=== PATIENT | female | born 1950 | race Caucasian/White ===

== ENCOUNTER 2017-12-23 11:40 | Outpatient (CLI) | payer MEDICARE, OTHER | END 2017-12-23 11:41 | disposition home or self-care (01) | LOC: BICMAMMO 11:40 | PROVIDERS: ATTEND Family Medicine | DX: Z12.31 Encounter for screening mammogram for malignant neoplasm of breast (principal) | CPT/HCPCS: 77063; 77067 ==

== ENCOUNTER 2018-02-10 05:44 | Day surgery (SDC) | payer MEDICARE, OTHER ==
[2018-02-09 10:46] VITALS: BMI 45.6
--- NOTE | 2018-02-10 05:17 | HP ---
SHORT STAY HISTORY AND PHYSICAL DATE OF ADMISSION: 02/10/2018 HISTORY OF PRESENT ILLNESS: This is a 67-year-old female with history of colon polyp and also chronic acid reflux. The patient has acid reflux for many years. She has been on medical therapy for a long time. The patient has no dysphagia or odynophagia. The patient comes for an EGD and colonoscopy with history of colon polyp for EGD, because of chronic acid reflux. ALLERGIES: None. SOCIAL HISTORY: Patient does not smoke or drink alcohol. MEDICAL ILLNESSES: 1. Obesity. 2. Hypertension. 3. Diabetes. 4. Hyperlipidemia. 5. Depression. 6. Hypothyroidism. 7. Restless leg syndrome. PHYSICAL EXAMINATION: GENERAL: Patient is obese, appears comfortable. VITAL SIGNS: Pulse is 70, blood pressure 140/70. HEENT: Conjunctivae clear. CARDIOVASCULAR SYSTEM: First and second heart sounds normal. LUNGS: Clear to auscultation. ABDOMEN: Soft to palpate. No organomegaly. No tenderness. No mass. ADMITTING DIAGNOSES: 1. Colon polyp. 2. Chronic acid reflux. PLAN: EGD and colonoscopy. [facility]
--- NOTE | 2018-02-10 09:02 | OP ---
DATE OF PROCEDURE: 02/10/2018 OPERATIVE PROCEDURE: Colonoscopy. PREOPERATIVE DIAGNOSIS: This is a 67-year-old female [facility] POSTOPERATIVE DIAGNOSES: 1. Sigmoid diverticular disease. 2. Hemorrhoids. OPERATIVE PROCEDURE IN DETAIL: The patient was placed on her left lateral position and was given sed ation by Anesthesia Department. A rectal exam was done before the scope was advanced into the rectum . No lesion felt on rectal exam. Then, Pentax video colonoscope was introduced into the rectum and advanced all the way into the cecum. The ileocecal area, cecum, ascending colon, no pathology seen. The scope was withdrawn back and was advanced one more time back into the cecum. Again, careful wit hdrawal of scope from the cecum to the ascending colon, hepatic flexure, no pathology seen. The cronin sverse colon, splenic flexure, descending colon, no pathology seen. The sigmoid colon showed scatter ed diverticular disease. Rectum showed hemorrhoids.
--- NOTE | 2018-02-10 09:19 | OP ---
DATE OF PROCEDURE: 02/10/2018 SURGEON: Eddie Pinto M.D. OPERATIVE PROCEDURE: Esophagogastroduodenoscopy with biopsy. PREOPERATIVE DIAGNOSIS: A 67-year-old female with chronic acid reflux, undergoing esophago gastroduodenoscopy. POSTOPERATIVE DIAGNOSES: 1. Irregular Z-line. Otherwise, the esophageal mucosa appears normal. There is no erosions or any ulceration. 2. Multiple gastric polyps over the stomach. 3. Normal duodenum. 4. Hiatus hernia. PROCEDURE IN DETAIL: The patient was placed on her left lateral position and was given sedation by A nesthesia Department. A Pentax video gastroscope under direct vision was passed in the oropharynx to the GE junction, into stomach and subsequently in the descending duodenum. The esophageal mucosa ap pears normal through the esophagus. At the GE junction just over the GE junction, the patient had ir regular Z-line. This was ____. Retroflexion failed to show any pathology of the fundus or cardia. She just has had a hiatal hernia. She was found to have multiple gastric polyps throughout the stoma ch. I biopsied a couple of polyps. The gastric antrum, pyloric channel, no pathology seen. The duo denal bulb and descending duodenum, no pathology seen. The stomach was decompressed and the scope re moved. DISCHARGE PLANNING: This is a 67-year-old female with longstanding acid reflux who came fo r EGD. She had EGD with biopsy and the Z-line was irregular. The colon was basically negative. DISCHARGE RECOMMENDATIONS: 1. Resume all medicines as before. 2. The patient was advised to call me if she develops abdominal pain or hematochezia. 3. Repeat colonoscopy in 10 years. 4. Weight loss and dietary restrictions explained to the patient.
[2018-02-10] MEDS ORDERED: Lidocaine 1% PF 5 ML VIAL ONE (14:48)
[2018-02-10] MEDS ORDERED: PROPOFOL 200 MG/20 ML VIAL ONE (14:48)
== END 2018-02-10 09:10 | disposition home or self-care (01) ==
LOC: SDC 05:44
PROVIDERS: ATTEND Internal Medicine Gastroenterology
PROC: 0DJD8ZZ Inspection of Lower Intestinal Tract, Via Natural or Artificial Opening Endoscopic (ICD-10-PCS; principal; 2018-02-10)
PROC: 0DB58ZX Excision of Esophagus, Via Natural or Artificial Opening Endoscopic, Diagnostic (ICD-10-PCS; 2018-02-10)
PROC: 0DB68ZX Excision of Stomach, Via Natural or Artificial Opening Endoscopic, Diagnostic (ICD-10-PCS; 2018-02-10)
DX: Z12.11 Encounter for screening for malignant neoplasm of colon (principal); K57.30 Diverticulosis of large intestine without perforation or abscess without bleeding; K64.9 Unspecified hemorrhoids; K31.7 Polyp of stomach and duodenum; K21.0 Gastro-esophageal reflux disease with esophagitis; I10 Essential (primary) hypertension; E11.9 Type 2 diabetes mellitus without complications; E78.5 Hyperlipidemia, unspecified; E03.9 Hypothyroidism, unspecified; G25.81 Restless legs syndrome; K44.9 Diaphragmatic hernia without obstruction or gangrene; Z79.899 Other long term (current) drug therapy
CPT/HCPCS: 43239; 88305; 88312; 88313; G0121; J2001; J2704

== ENCOUNTER 2018-02-26 10:17 | Emergency (ER) | payer MEDICARE, OTHER ==
[2018-02-26 11:01] LABS: #Basophils 0.1 thou/uL (0.0-0.2); #Eosinphils 0.1 thou/uL (0.0-0.7); #Lymphocytes 1.3 thou/uL (1.20-3.40); #Monocytes 0.5 thou/uL (0.11-0.59); %Basophils 1.6 % (0.0-1.0); %Eosinophils 2.1 % (0.0-10.0); %Lymphocytes 21.6 % (21.0-51.0); %Monocytes 8.8 % (0.0-10.0); %Neutrophils 65.9 % (42.0-75.0); Hemoglobin 11.7 g/dL (12.0-16.0); Mean Corpuscular HGB CONC 33.9 g/dL (32.0-36.0); Mean Corpuscular Hemoglobin 29.2 pg (27.0-31.0); Mean Corpuscular Volume 86.1 fL (78.0-98.0); Mean Platelet Volume 8.9 fL (7.4-10.4); Platelet Count 120 thou/uL (130-400); RBC Distribution Width 13.6 % (11.5-14.5); Red Blood Cell (RBC) Count 4.02 mill/uL (4.20-5.40)
[2018-02-26 11:12] LABS: ALT (SGPT) 25 U/L (8-55); AST (SGOT) 28 U/L (5-34); Albumin 3.9 g/dL (3.4-4.8); Alkaline Phosphatase 93 U/L (40-150); Anion Gap 14 mmol/L (10-20); BUN (Urea Nitrogen) 17 mg/dL (9.8-20.1); Bilirubin, Total 0.8 mg/dL (0.2-1.2); Calc. Creatinine Clearance 0 mL/min (70-130); Calcium 9.2 mg/dL (7.8-10.44); Carbon Dioxide 27 mmol/L (23-31); Chloride 102 mmol/L (98-107); Estimated GFR-MDRD 78; Globulin 3.4 g/dL (2.4-3.5); Glucose 111 mg/dL (80-115); Potassium 3.9 mmol/L (3.5-5.1); Protein, Total 7.3 g/dL (6.0-8.3); Sodium 139 mmol/L (136-145)
--- NOTE | 2018-02-26 11:28 | ULT ---
VENOUS DOPPLER ULTRASOUND OF THE LEFT LOWER EXTREMITY: Date: 02/26/18 HISTORY: Left lower extremity pain and edema. TECHNIQUE: Franklin scale ultrasound with color flow and spectral Doppler imaging of the deep venous system of the l eft lower extremity was performed. FINDINGS: There is good flow, compression, and augmentation noted in the left common femoral, femoral, deep fem oral, popliteal, posterior tibial, and greater saphenous veins. IMPRESSION: No evidence of deep venous thrombosis in the left lower extremity. POS: JOHANN
[2018-02-26] MEDS ORDERED: Ketorolac Tromethamine 30 MG/ML VIAL ONE (11:59)
[2018-02-26] MEDS ORDERED: Amoxicillin/Potassium Clav 875 MG TAB ONE (11:59)
== END 2018-02-26 15:03 | disposition home or self-care (01) ==
LOC: SCSER 10:17
DX: L03.116 Cellulitis of left lower limb (principal); E11.9 Type 2 diabetes mellitus without complications; I10 Essential (primary) hypertension; F32.9 Major depressive disorder, single episode, unspecified; Z79.899 Other long term (current) drug therapy
CPT/HCPCS: 36416; 80053; 85025; 85652; 86140; 96374; J1885

== ENCOUNTER 2018-04-21 11:53 | Outpatient (CLI) | payer MEDICARE, OTHER ==
--- NOTE | 2018-04-21 16:16 | MRI ---
MRI OF THE LUMBAR SPINE WITH AND WITHOUT CONTRAST: Date: 04-21-18 Comparison: None. History: Degenerative disc disease, lumbar radiculopathy, low back pain. Technique: Multiplanar, multisequence MRI images were obtained of the lumbar spine with and without c ontrast. FINDINGS: The sagittal STIR imaging demonstrates no focal area of osseous marrow edema. There is no significant anterolisthesis or retrolisthesis. There is mild increased T2 signal within the paraspinal musculature/soft tissues posteriorly at the L 4 and L5 level, likely on the basis of prior surgery. Assuming five lumbar type vertebral bodies the conus medullaris terminates at T12. T11-12: There is disc space narrowing with disc desiccation, anterior osteophyte formation, and mild disc bulge. Bilateral facet hypertrophy noted. Mild bilateral neural foraminal stenosis on the basis of facet hypertrophy, left greater than right. T12-L1: Mild bilateral facet hypertrophy. Minimal disc bulge. No significant central canal or neural foraminal stenosis. L1-2: Intervertebral disc height and signal intensity within normal limits. Mild bilateral facet hype rtrophy with no significant central canal or neural foraminal stenosis. L2-3: Mild bilateral facet hypertrophy, right greater than left. The intervertebral disc height and s ignal intensity appears within normal limits with no significant central canal or neural foraminal st enosis. L3-4: Prominent bilateral facet hypertrophy. The patient appears status post bilateral laminectomy. T here is a foraminal disc osteophyte complex on the right with moderate associated right neural pooja inal stenosis. No significant central canal stenosis. Mild left neural foraminal stenosis on the basi s of facet hypertrophy noted. L4-5: There is disc space narrowing, disc desiccation and anterior osteophyte formation. There is holley ateral facet hypertrophy, left greater than right. There is mild/moderate left neural foraminal steno sis. No significant central canal or right neural foraminal stenosis. L5-S1: Bilateral facet hypertrophy with no significant central canal or neural foraminal stenosis. Th ere is disc space narrowing and disc desiccation. The post contrast imaging demonstrates no abnormal enhancement involving the nerve roots of the cauda equina. No significant abnormal enhancement is seen involving the intervertebral discs or imaged oss eous structures. There is a very large incompletely imaged . Retroperitoneal structures demonstrate no acute findings. IMPRESSION: Post-operative and degenerative changes present within the lumbar spine as detailed above. POS: JOHANN
--- NOTE | 2018-04-21 16:24 | MRI ---
MRI CERVICAL SPINE WITHOUT CONTRAST: 04/21/18 HISTORY: Cervical radiculopathy. Patient fell in February and is now having bilateral arm pain. COMPARISON: None. TECHNIQUE: Cervical spine MRI is performed without intravenous gadolinium administration. Multisequential, multi planar imaging is performed. FINDINGS: There is 2.6 mm of anterolisthesis of C2 upon C3. There is slight reversal of cervical lordosis cente red at C5. Overall, cervical spine vertebral body height is maintained. There is no fracture. There i s no significant STIR hyperintensity to suggest vertebral body edema or ligamentous injury. There is T1 marrow signal hypointensity. Correlate for anemia or marrow infiltrative process. There a re type II Modic changes involving the C3-C4 disc space. There is intrinsic T1 and T2 hyperintensity at T2, likely representing a small hemangioma which is incompletely evaluated. C2-C3: Broad based disc osteophyte complex abuts the thecal sac. There is no significant central korin l stenosis. There is right facet hypertrophy. Moderate right foraminal narrowing. Left neural foramen is patent. C3-C4: Broad based disc osteophyte complex abuts the thecal sac. The ventral CSF signal intensity is effaced. There is flattening of the cervical cord with at least mild central canal stenosis. No T2 hy perintensity of the cord. Degenerative changes in bilateral uncovertebral joints results in severe ri ght and moderate to severe left foraminal narrowing. C4-C5: Broad based disc osteophyte complex abuts the thecal sac. Ventral CSF signal intensity is effa ian. There is mild flattening of the cervical cord, without T2 hyperintensity of the cord. Overall mi ld central canal stenosis. Right neural foramen is patent. Moderate to severe left foraminal narrowin g. C5-C6: Broad based disc osteophyte complex abuts the thecal sac. Mild central canal stenosis. Possibl e mild slight narrowing of the ventral cord without T2 hyperintensity of the cord. Mild bilateral for aminal narrowing. C6-C7: Broad based disc osteophyte complex abuts the thecal sac and effaces the ventral subarachnoid space. There does appear to be mass effect on the cervical cord with mild to moderate central canal s tenosis. Evaluation is limited by motion. Limited evaluation of the neural foramina. There appears to be at least moderate bilateral foraminal narrowing. C7-T1: No significant central canal stenosis or foraminal narrowing. IMPRESSION: 1. Diffuse T1 marrow signal hypointensity. Correlate for anemia or marrow infiltrative process. 2. Degenerative changes of the cervical spine as detailed above. There are varying degrees of at least moderate central canal stenosis as well as moderate to severe foraminal narrowing as described above. POS: JOHANN
== END 2018-04-21 11:54 | disposition home or self-care (01) ==
LOC: SCSMRI 11:53
PROVIDERS: ATTEND Surgery
DX: M47.22 Other spondylosis with radiculopathy, cervical region (principal); M51.16 Intervertebral disc disorders with radiculopathy, lumbar region; M47.26 Other spondylosis with radiculopathy, lumbar region; M48.061 Spinal stenosis, lumbar region without neurogenic claudication; M54.5 Low back pain; M48.02 Spinal stenosis, cervical region; M99.81 Other biomechanical lesions of cervical region; Z98.890 Other specified postprocedural states
CPT/HCPCS: 72141; 72158; 82565

== ENCOUNTER 2018-07-05 12:50 | Outpatient (CLI) | payer MEDICARE ==
--- NOTE | 2018-07-05 15:00 | ULT ---
RENAL ULTRASOUND: HISTORY: Left renal cyst. COMPARISON: 11/18/2016 TECHNIQUE: Multiplanar wilkinson-scale and color Doppler images were obtained in a renal ultrasound. FINDINGS: The kidneys demonstrate normal cortical echogenicity. There is a large cyst emanating from the upper pole of the left kidney, measuring 14.9 cm in greatest dimension. No obvious solid component is see n. There is no evidence of hydronephrosis or shadowing calculi. The kidneys measure 11.4 and 15.2 c m in length, on the right and left, respectively. Limited visualization of the urinary bladder is unremarkable. IMPRESSION: Left renal cyst. POS: RODRÍGUEZ
== END 2018-07-05 12:51 | disposition home or self-care (01) ==
LOC: ULT 12:50
PROVIDERS: ATTEND Urology
DX: N28.1 Cyst of kidney, acquired (principal)
CPT/HCPCS: 76770

== ENCOUNTER 2019-06-02 20:29 | Emergency (ER) | payer MEDICARE ==
[2019-06-02] MEDS ORDERED: Morphine 4 MG/ML VIAL ONE (21:12)
[2019-06-02] MEDS ORDERED: Ondansetron PF 4 MG/2 ML Vial ONE (21:12)
[2019-06-02 21:27] LABS: Band 3 % (5-11); Eosinophils 1 % (0-10); Lymphocytes 5 % (21-51); MDiff Complete? YES; Mean Corpuscular HGB CONC 33.3 g/dL (32.0-36.0); Mean Corpuscular Hemoglobin 30.1 pg (27.0-31.0); Mean Corpuscular Volume 90.5 fL (78.0-98.0); Mean Platelet Volume 7.9 fL (7.4-10.4); Monocytes 1 % (0-10); Neutrophil 90 % (42-75); Platelet Count 105 thou/uL (130-400); Platelet Morphology Comment Appears Decreased; RBC Distribution Width 14.4 % (11.5-14.5); Red Blood Cell (RBC) Count 4.31 mill/uL (4.20-5.40); White Blood Cell (WBC) Count 4.7 thou/uL (4.8-10.8)
[2019-06-02 21:29] LABS: ALT (SGPT) 28 U/L (8-55); AST (SGOT) 36 U/L (5-34); Albumin 3.7 g/dL (3.4-4.8); Alkaline Phosphatase 100 U/L (40-110); Anion Gap 15 mmol/L (10-20); BUN (Urea Nitrogen) 24 mg/dL (9.8-20.1); Bilirubin, Total 0.5 mg/dL (0.2-1.2); CK (CPK) 390 U/L (29-168); Calc. Creatinine Clearance 0 mL/min (70-130); Calcium 8.6 mg/dL (7.8-10.44); Carbon Dioxide 26 mmol/L (23-31); Chloride 102 mmol/L (98-107); Estimated GFR-MDRD 72; Globulin 3.3 g/dL (2.4-3.5); Glucose 126 mg/dL (80-115); Lipase 19 U/L (8-78); Potassium 3.9 mmol/L (3.5-5.1); Sodium 139 mmol/L (136-145)
--- NOTE | 2019-06-02 22:34 | ULT ---
GALLBLADDER ULTRASOUND: 06/02/19 HISTORY: Right upper quadrant pain. Nausea. Vomiting. COMPARISON: None. TECHNIQUE: Utilizing a multihertz transducer, sonographic imaging of the right upper quadrant is performed in th e longitudinal and transverse plane. FINDINGS: Pancreas is obscured by bowel gas. There is an adjacent fluid filled structure which may represent a portion of the stomach. Hepatic parenchyma has a normal echotexture. No hepatic masses or intrahepatic biliary dilatation. Th e contour of the hepatic margin is maintained. Portal vein is patent. Appropriate directional flow. Sonographic evidence of cholelithiasis. Gallbladder wall is thickened measuring 0.4 cm. No pericholec ystic fluid. Positive Sy's sign is reported. Right kidney demonstrates cortical thinning. No hydronephrosis. Right kidney measures 5.3 x 5.8 x 11. 2 cm. Common bile duct diameter is 0.4 cm. IMPRESSION: 1. Sonographic evidence of cholelithiasis with findings suggesting cholecystitis. 2. Possible distended stomach, incompletely evaluated. Consider a two view abdomen radiograph f or further detail. 3. Further evaluation with HIDA scan may be beneficial. POS: JOHANN
== END 2019-06-02 22:44 | disposition home or self-care (01) ==
LOC: SCSER 20:29
DX: K80.20 Calculus of gallbladder without cholecystitis without obstruction (principal); I10 Essential (primary) hypertension; E03.9 Hypothyroidism, unspecified; E11.9 Type 2 diabetes mellitus without complications; K21.9 Gastro-esophageal reflux disease without esophagitis; F32.9 Major depressive disorder, single episode, unspecified; Z79.899 Other long term (current) drug therapy
CPT/HCPCS: 76705; 80053; 82550; 83690; 84484; 85025; 93005; 96361; 96374; 96375; J2270; J2405

== ENCOUNTER 2019-06-03 10:24 | Day surgery (SDC) | payer MEDICARE ==
[2019-06-03 11:37] LABS: #Basophils 0.1 thou/uL (0.0-0.2); #Lymphocytes 0.6 thou/uL (1.20-3.40); #Monocytes 0.3 thou/uL (0.11-0.59); #Neutrophils 2.4 thou/uL (1.40-6.50); %Basophils 1.9 % (0.0-1.0); %Eosinophils 1.4 % (0.0-10.0); %Lymphocytes 18.1 % (21.0-51.0); %Neutrophils 70.7 % (42.0-75.0); Hemoglobin 11.7 g/dL (12.0-16.0); Mean Corpuscular HGB CONC 33.3 g/dL (32.0-36.0); Mean Corpuscular Hemoglobin 30.4 pg (27.0-31.0); Mean Corpuscular Volume 91.2 fL (78.0-98.0); Mean Platelet Volume 7.8 fL (7.4-10.4); Platelet Count 90 thou/uL (130-400); RBC Distribution Width 13.6 % (11.5-14.5); Red Blood Cell (RBC) Count 3.84 mill/uL (4.20-5.40); White Blood Cell (WBC) Count 3.4 thou/uL (4.8-10.8)
[2019-06-03] MEDS ORDERED: Morphine 4 MG/ML VIAL ONE (11:50)
[2019-06-03] MEDS ORDERED: Ondansetron PF 4 MG/2 ML Vial ONE ×2 (11:51→15:39)
[2019-06-03 11:57] LABS: Bilirubin Negative (Negative); Blood, Urine Negative (Negative); Clarity Clear (Clear); Glucose, Urine (Dipstick) Normal (Negative); Leukocyte Negative Leu/uL (Negative); Nitrite Negative (Negative); Protein, Urine (Dipstick) 10 mg/dL (Neg-Trace); Urobilinogen 3 mg/dL (Less than 2)
[2019-06-03 12:01] LABS: ALT (SGPT) 24 U/L (8-55); AST (SGOT) 31 U/L (5-34); Albumin 3.6 g/dL (3.4-4.8); Alkaline Phosphatase 85 U/L (40-110); Anion Gap 10 mmol/L (10-20); BUN (Urea Nitrogen) 15 mg/dL (9.8-20.1); Bilirubin, Total 0.6 mg/dL (0.2-1.2); Calc. Creatinine Clearance 0 mL/min (70-130); Calcium 8.2 mg/dL (7.8-10.44); Carbon Dioxide 26 mmol/L (23-31); Chloride 102 mmol/L (98-107); Estimated GFR-MDRD 74; Glucose 108 mg/dL (80-115); Lipase 13 U/L (8-78); Potassium 3.4 mmol/L (3.5-5.1); Protein, Total 6.6 g/dL (6.0-8.3); Sodium 135 mmol/L (136-145)
[2019-06-03] MEDS ORDERED: Levofloxacin 500 mg/D5W 100 ml Premix Bag ONE (14:11)
[2019-06-03] MEDS ORDERED: Bupivacaine HCl 0.5%/Epinephrine 1:200,000/PF 30 ml Vial ONE (15:37)
[2019-06-03] MEDS ORDERED: Iothalamate Meglumine 60% 50 ML VIAL FS ONE (15:37)
[2019-06-03] MEDS ORDERED: PROPOFOL 200 MG/20 ML VIAL ONE (15:39)
[2019-06-03] MEDS ORDERED: Rocuronium Bromide 10 MG/ML (10ML VIAL) ONE (15:39)
[2019-06-03] MEDS ORDERED: Succinylcholine Chloride 20 MG/ML 10 ml SYRINGE FS ONE (15:39)
[2019-06-03] MEDS ORDERED: Lidocaine 1% PF 5 ML VIAL ONE (15:39)
[2019-06-03] MEDS ORDERED: Dexamethasone 20 MG/5 ML VIAL ONE (15:39)
[2019-06-03] MEDS ORDERED: Fentanyl 100 MCG/2 ML VIAL ONE ×3 (15:40→17:43)
[2019-06-03] MEDS ORDERED: Ketorolac Tromethamine 30 MG/ML VIAL ONE (15:54)
--- NOTE | 2019-06-03 16:13 | HP ---
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 Liver function tests were normal. Bile duct caliber normal. She is seen in the emergency room, brought to the preoperative holding. ALLERGIES: NONE. SOCIAL HISTORY: Tobacco, none. Alcohol, occasional wine. MEDICATIONS: 1. Pramipexole. 2. Pioglitazone. 3. Hydrochlorothiazide/lisinopril. 4. Levothyroxine. 5. Nexium. 6. Duloxetine. PAST MEDICAL HISTORY: Diabetes mellitus, hypertension, GERD. Five years ago with Dr. Pete, she had a normal cardiac catheterization prior to undergoing knee replacements. The patient is . She lives in [place]. PAST SURGICAL HISTORY: Bilateral total knee replacements, L3-5 surgery, Dr. Pierson; carpal tunnel release bilaterally; total abdominal hysterectomy; vein ablation. The patient is 2, para 2. 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 She is accompanied by a relative. She is . REVIEW OF SYSTEMS: Ten-point, noncontributory. PHYSICAL EXAMINATION: VITAL SIGNS: Weight 140 kg, blood pressure 117/59, pulse 75, respiratory rate 18, and temperature 98.5 degrees. GENERAL: Morbidly obese. HEENT: Sclerae nonicteric. SKIN: Nonjaundiced. NECK: Carotids are palpable without bruits. No lymphadenopathy in neck, axilla, or groins. LUNGS: Clear to auscultation. No wheezing. CARDIAC: Regular rate and rhythm without murmur or gallop. ABDOMEN: Soft, tenderness in right upper quadrant. Obese. EXTREMITIES: Unremarkable. No ankle edema. LABORATORY DATA: Sodium 135, potassium 3.4, BUN 15, creatinine 0.77. White count 3, hemoglobin 11.7. ASSESSMENT AND PLAN: 1. Cholecystitis, acute. Recommend laparoscopic video cholecystectomy. She had a positive Sy sign and gallstones last night, we will send home. She received intravenous antibiotics in the emergency room. We will plan preoperative Toradol, Ofirmev, laparoscopic video cholecystectomy. Risks of infection, bleeding, visceral and biliary injury discussed. Questions answered. She consents. 2. Hypertension. 3. Diabetes mellitus. 4. Lumbar surgery. 5. Reflux. 6. Morbid obesity. 7. Metabolic syndrome. Job ID: [id number]
[2019-06-03] MEDS ORDERED: SUGAMMADEX SODIUM 200 MG/2 ML VIAL ONE (16:51)
[2019-06-03] MEDS ORDERED: Promethazine HCl 25 MG/ML VIAL IM PRN (17:39)
[2019-06-03] MEDS ORDERED: Ondansetron HCl/PF 4 MG/2 ML Vial IVP PRN (17:39)
[2019-06-03] MEDS ORDERED: Promethazine HCl 25 MG/ML VIAL SLOW IVP PRN (17:39)
[2019-06-03] MEDS ORDERED: HYDROcodone/Acetaminophen 5/325 mg Tablet ONE ×2 (18:19)
--- NOTE | 2019-06-04 00:24 | OP ---
DATE OF PROCEDURE: 06/03/2019 PREOPERATIVE DIAGNOSES: Morbid obesity, chronic cholecystitis, cholelithiasis, diabetes, and hypertension. POSTOPERATIVE DIAGNOSES: Morbid obesity, chronic cholecystitis, cholelithiasis, diabetes, hypertension, and cirrhosis. PROCEDURES PERFORMED: Laparoscopic video cholecystectomy; core liver biopsies, right lobe of liver. ANESTHESIA: General, local of 0.5% Marcaine with epinephrine 30 mL Note, hepatitis serology checked. Postoperatively, it will be discussed with the patient in followup office visit. DESCRIPTION OF PROCEDURE: The patient was taken to the operating room, where under general anesthesia, abdomen was prepared with ChloraPrep and draped in routine fashion. Local anesthetic was infiltrated in the skin and subcutaneous tissue about each port site. Supraumbilical midline incision was made. Pneumoperitoneum to 15 mmHg was obtained with a Veress needle, replaced with a 5 port, video laparoscope was inserted. Right subxiphoid incision was made and 11 port was placed. Right subcostal incision was made at midclavicular and anterior axillary line, and the 5 port was placed. Liver was cirrhotic and irregular. Core liver biopsies obtained x2. Hemostasis was gained with cautery. Core was submitted to Pathology in formalin. Fundus of the gallbladder was grasped at the cephalad. Infundibulum was grasped and reflected laterally. Cystic artery and duct dissected free. Critical view obtained. Cystic artery and duct doubly clipped proximally, divided, and gallbladder dissected free from liver bed obtaining good hemostasis prior to division of the final peritoneal attachments. Gallbladder and contents were removed and submitted to Pathology. Hemostasis was gained with cautery due to cirrhosis. Yessenia was placed in the liver bed. Hemostasis was ensured. Irrigant and pneumoperitoneum were evacuated. All instruments were removed and all skin incisions were approximated with interrupted subdermal 4-0 Monocryl and Medulla glue applied. Job ID: [id number]
== END 2019-06-03 19:40 | disposition home or self-care (01) ==
LOC: ERS 10:24 → SDC 17:41
PROVIDERS: ATTEND Specialist
PROC: 0FT44ZZ Resection of Gallbladder, Percutaneous Endoscopic Approach (ICD-10-PCS; principal; 2019-06-03)
PROC: 0FB14ZX Excision of Right Lobe Liver, Percutaneous Endoscopic Approach, Diagnostic (ICD-10-PCS; 2019-06-03)
DX: K74.60 Unspecified cirrhosis of liver (principal); K76.0 Fatty (change of) liver, not elsewhere classified; K81.2 Acute cholecystitis with chronic cholecystitis; E11.9 Type 2 diabetes mellitus without complications; I10 Essential (primary) hypertension; E03.9 Hypothyroidism, unspecified; K21.9 Gastro-esophageal reflux disease without esophagitis; E88.81 Metabolic syndrome and other insulin resistance; E66.01 Morbid (severe) obesity due to excess calories; Z68.42 Body mass index [BMI] 45.0-49.9, adult; Z79.84 Long term (current) use of oral hypoglycemic drugs; Z79.899 Other long term (current) drug therapy
CPT/HCPCS: 80053; 81003; 82248; 83690; 85025; 88304; 88307; 88313; 93005; 96361; 96365; 96375; J0131; J0670; J1100; J1610; J1885; J1956; J2001; J2270; J2405; J2704; J3010

== ENCOUNTER 2019-07-20 10:33 | Outpatient (CLI) | payer MEDICARE ==
--- NOTE | 2019-07-20 11:15 | ULT ---
ULTRASOUND RETROPERITONEUM COMPLETE: (RENAL) DATE: 07/20/2019 HISTORY: Follow-up renal cyst in 69-year-old female. COMPARISON: 07/05/2018 FINDINGS: There is a very large, approximately 14.5 x 8 x 13 cm exophytic cyst arising from the upper pole of t he left kidney. Left kidney is difficult to measure because of this cyst. Right kidney is 10 x 6.5 x 6 cm. No hydronephrosis bilaterally. Approximately 180 mL volume of urinary bladder at time of scan. No mural thickening of bladder. No interval change overall. IMPRESSION: Very large left renal cyst. No interval change.
== END 2019-07-20 10:34 | disposition home or self-care (01) ==
LOC: SCSULT 10:33
PROVIDERS: ATTEND Urology
DX: N28.1 Cyst of kidney, acquired (principal)
CPT/HCPCS: 76770

== ENCOUNTER 2020-07-02 13:53 | Outpatient (CLI) | payer MEDICARE ==
[~2020-07-02 13:53] MED LIST: Iopamidol-370 76% 500 ML 1 ML ONE
--- NOTE | 2020-07-02 15:08 | CT ---
Exam: Abdomen CT with and without contrast Pelvic CT with and without contrast HISTORY: Follow-up renal cyst. Flank pain. COMPARISON: 02/27/2016. CORRELATION: Renal ultrasound 07/20/2019, 06/26/2018 and lumbar spine MRI 04/21/2018 TECHNIQUE: Abdomen and pelvic CT is performed with and without contrast following urogram protocol. C oronal reformatted images are submitted for interpretation FINDINGS: Lung bases: Scarring and atelectasis in the lung bases Heart: Normal heart size. No significant pericardial effusion Aorta: Atherosclerosis. No significant periaortic fat stranding Liver: Appropriate enhancement. No enhancing masses. Spleen: Appropriate enhancement Pancreas: Appropriate enhancement Adrenal glands: Symmetric enhancement Lymph nodes: No gastrohepatic, retrocrural or periportal lymphadenopathy Portal vein: Patent Gallbladder: Surgically absent gallbladder Kidneys: Noncontrast: No evidence of nephrolithiasis, hydronephrosis or perinephric fat stranding. 0.3 cm dmitry ically based calcification in the left kidney. Bilateral ureters have a normal caliber. No hydroureter, periureteral fat stranding or ureterolithiasis. Contrast: Symmetric enhancement of the kidneys. No enhancing masses. Redemonstration of a hypodensity in the mid right renal cortex, currently measuring 1.4 x 1.2 cm. Currently, this lesion has an attenuation coefficient of 8 Hounsfield units on the noncontrast series. Cyst is favored. Redemonstra tion of a hypodensity in the lower pole of the left kidney, currently measuring 1.3 x 1.1 cm. This lesion has attenuation coefficient of 14 Hounsfield units on the noncontrast series. Redemonstration of a large hypodense mass occupying the upper pole the left kidney. This hyperdense mass measures 9.3 cm craniocaudal x 9.9 cm anterior-posterior x 10.7 cm mediolateral. Attenuation coefficient on th e noncontrast series is 25 Hounsfield units, arterial phase 27 Hounsfield units, and delayed 26 Hounsfield units. There is no associated enhancement or bulky calcification. A slightly complex cyst is favored. Delayed: Symmetric excretion into a decompressed collecting system. Mesentery: No mass, nephropathy, free air or free fluid Alimentary canal: Limited evaluation due to lack of oral contrast administration. No evidence of kathie l obstruction. The ileocecal junction is normal. Normal caliber appendix. Scattered fecal material in a nondistended/nondilated colon. CT PELVIS: Reproductive organs and pelvis: No mass, adenopathy or hematoma. Small amount of free fluid in the pe lvis. Urinary bladder: Decompressed and grossly unremarkable. Contrast does opacify the dependent portion o f the bladder on the delayed images. No obvious filling defect. No lytic or blastic lesions in the osseous structures IMPRESSION: 1. Redemonstration of bilateral renal cortical cysts. The exophytic large left renal cortical cyst is slightly complex. 2. No evidence of obstructive uropathy. 3. No evidence of enhancing masses. Transcribed Date/Time: 07/02/2020 3:32 PM
== END 2020-07-02 13:54 | disposition home or self-care (01) ==
LOC: BICCT 13:53
PROVIDERS: ATTEND Urology
DX: N28.1 Cyst of kidney, acquired (principal); N39.46 Mixed incontinence; M54.16 Radiculopathy, lumbar region
CPT/HCPCS: 36415; 74178; 80048; 81001; 87086; Q9967

== ENCOUNTER 2020-09-18 10:57 | Outpatient (CLI) | payer MEDICARE ==
--- NOTE | 2020-09-18 11:30 | MMO ---
Bilateral MAMMO Bilat Screen [facility]. CLINICAL HISTORY: Patient is 70 years old and is seen for screening. The patient has no family history of breast cancer. The patient has no personal history of cancer. VIEWS: The views performed were: bilateral craniocaudal with tomosynthesis and bilateral mediolateral oblique with tomosynthesis. FILMS COMPARED: The present examination has been compared to prior imaging studies performed at [facility] on 12/23/2017, and at [facility] on 07/22/2012. This study has been interpreted with the assistance of computer-aided detection. MAMMOGRAM FINDINGS: There are scattered fibroglandular densities. There are stable benign appearing calcifications seen in both breasts. There are no suspicious masses, suspicious calcifications, or new areas of architectural distortion. IMPRESSION: THERE IS NO MAMMOGRAPHIC EVIDENCE OF MALIGNANCY. A ROUTINE FOLLOW-UP MAMMOGRAM IN 1 YEAR IS RECOMMENDED. THE RESULTS OF THIS EXAM WERE SENT TO THE PATIENT. ACR BI-RADS Category 2 - Benign finding MAMMOGRAPHY NOTE: 1. A negative mammogram report should not delay a biopsy if a dominant of clinically suspicious mass is present. 2. Approximately 10% to 15% of breast cancers are not detected by mammography. 3. Adenosis and dense breasts may obscure an underlying neoplasm. Reported by: CHIQUITA GARCIA MD Electonically Signed: [id number]
== END 2020-09-18 10:58 | disposition home or self-care (01) ==
LOC: BICMAMMO 10:57
PROVIDERS: ATTEND Family Medicine
DX: Z12.31 Encounter for screening mammogram for malignant neoplasm of breast (principal)
CPT/HCPCS: 77063; 77067

== ENCOUNTER 2021-06-03 14:06 | Outpatient (CLI) | payer MEDICARE | END 2021-06-03 14:07 | disposition home or self-care (01) | LOC: BICRAD 14:06 | PROVIDERS: ATTEND Anesthesiology Pain Medicine | DX: M16.11 Unilateral primary osteoarthritis, right hip (principal) ==

== ENCOUNTER 2021-10-25 11:28 | Outpatient (CLI) | payer MEDICARE, OTHER | END 2021-10-25 11:29 | disposition home or self-care (01) | LOC: SCSMRI 11:28 | PROVIDERS: ATTEND Surgery | DX: R29.898 Other symptoms and signs involving the musculoskeletal system (principal); M47.812 Spondylosis without myelopathy or radiculopathy, cervical region; M50.31 Other cervical disc degeneration, high cervical region; M48.02 Spinal stenosis, cervical region; M51.24 Other intervertebral disc displacement, thoracic region | CPT/HCPCS: 72141; 72146 ==

== ENCOUNTER 2022-12-19 13:14 | Outpatient (CLI) | payer MEDICARE | END 2022-12-19 13:15 | disposition home or self-care (01) | LOC: TBSIIMAG 13:14 | PROVIDERS: ATTEND Anesthesiology Pain Medicine | DX: M43.16 Spondylolisthesis, lumbar region (principal); M47.817 Spondylosis without myelopathy or radiculopathy, lumbosacral region; M47.815 Spondylosis without myelopathy or radiculopathy, thoracolumbar region | CPT/HCPCS: 72100; 72148 ==

== ENCOUNTER 2023-01-15 07:37 | Outpatient (CLI) | payer MEDICARE, OTHER | END 2023-01-15 07:38 | disposition home or self-care (01) | LOC: TBSIIMAG 07:37 | PROVIDERS: ATTEND Anesthesiology Pain Medicine | DX: M48.02 Spinal stenosis, cervical region (principal); M48.04 Spinal stenosis, thoracic region; M47.812 Spondylosis without myelopathy or radiculopathy, cervical region; M47.814 Spondylosis without myelopathy or radiculopathy, thoracic region | CPT/HCPCS: 72141; 72146 ==